=== PATIENT | male | born 1950 | race Caucasian/White ===

== ENCOUNTER 2018-11-06 12:54 | Emergency (ER) | payer MEDICARE, BC ==
[~2018-11-06] VITALS: Ht 193 cm; Wt 115.9 kg
[2018-11-06 13:31] LABS: BASOPHILS % (AUTO) 0.3 % (0-1); EOSINOPHILS % (AUTO) 0.4 % (0-6); HEMATOCRIT 41.8 % (42.0-52.0); HEMOGLOBIN 14.6 g/dl (14.0-17.9); LYMPHOCYTES # (AUTO) 0.5 X10'3 (1.1-4.8); LYMPHOCYTES % (AUTO) 5.2 % (21-51); MEAN CORPUSCULAR HEMOGLOBIN 31.9 PG (27.0-31.0); MEAN CORPUSCULAR HGB CONC 34.8 g/dL (33.0-36.5); MEAN CORPUSCULAR VOLUME 91.6 FL (78-98); MEAN PLATELET VOLUME 7.9 FL (7.4-10.4); MONOCYTES # (AUTO) 0.6 X10'3 (0-0.9); MONOCYTES % (AUTO) 6.9 % (2-12); NEUTROPHILS # (AUTO) 7.8 X10'3 (1.8-7.7); NEUTROPHILS % (AUTO) 87.2 % (42-75); PLATELET COUNT 145 X10'3 (140-440); RED BLOOD COUNT 4.56 X10'6 (4.70-6.10); RED CELL DISTRIBUTION WIDTH 14.4 % (11.5-14.5)
[2018-11-06 13:45] LABS: ALANINE AMINOTRANSFERASE 33 U/L (12-78); ALBUMIN 3.3 G/DL (3.4-5.0); ALBUMIN/GLOBULIN RATIO 0.8 (1.1-1.5); ALKALINE PHOSPHATASE 96 IU/L (46-116); ANION GAP 10 (8-16); ASPARTATE AMINO TRANSFERASE 20 U/L (10-37); BILIRUBIN,TOTAL 0.8 MG/DL (0.1-1.0); BLOOD UREA NITROGEN 27 MG/DL (7-18); BUN/CREATININE RATIO 17.6 (5.4-32.0); CALCIUM 8.6 MG/DL (8.5-10.1); CHLORIDE 103 MMOL/L (99-107); CREATININE 1.53 MG/DL (0.60-1.10); GLUCOSE 379 MG/DL (70-104); POTASSIUM 4.6 MMOL/L (3.5-5.1); SODIUM 136 MMOL/L (135-145); TOTAL PROTEIN 7.6 G/DL (6.4-8.2); eGFR 46 ML/MIN
[2018-11-06 13:50] LABS: INR 1.1 INR; PARTIAL THROMBOPLASTIN TIME 27 SECONDS (22-32); PROTHROMBIN TIME 10.9 SECONDS (9.0-12.0)
[2018-11-06] MEDS ORDERED: ipratropium/albuterol 3ml nebule NEB PRN ×2 (16:40)
[2018-11-06 17:14] VITALS: BP 169/94
[2018-11-06] MEDS ORDERED: LEVO500T2 PO (17:54)
[2018-11-06] MEDS ORDERED: PRED20TA PO (17:54)
[2018-11-06] MEDS ORDERED: ALBU18HF2 INH (17:55)
== END 2018-11-06 18:19 | disposition home or self-care (01) ==
LOC: ER 12:55
DX: J18.9 Pneumonia, unspecified organism (principal); I10 Essential (primary) hypertension; J44.9 Chronic obstructive pulmonary disease, unspecified; E11.9 Type 2 diabetes mellitus without complications; Z95.0 Presence of cardiac pacemaker; Z88.6 Allergy status to analgesic agent; Z88.1 Allergy status to other antibiotic agents; Z88.5 Allergy status to narcotic agent; Z88.8 Allergy status to other drugs, medicaments and biological substances; Z79.899 Other long term (current) drug therapy
CPT/HCPCS: 36415; 71045; 80053; 84484; 85025; 85610; 85730; 93005; 94640; 94760; 99284

== ENCOUNTER 2021-01-20 10:52 | Day surgery (SDC) | payer MEDICARE, BC ==
[2021-01-20] VITALS (9 sets, daily range): BP systolic 117–148; BP diastolic 62–75
[~2021-01-20] VITALS: Ht 193 cm; Wt 110.8 kg
[~2021-01-20 10:52] MED LIST: ALBU18HF2 INH
[2021-01-20] MEDS ORDERED: cefazolin/dext.iso 2gm/100ml 100 ML IV ONE (11:20)
[2021-01-20] MEDS ORDERED: VANCOMYCIN 1,500MG inj. 1,500 MG in normal saline 500ml IV soln 300 ML IV ONE (11:20)
[2021-01-20] MEDS ORDERED: normal saline 1,000 ML IV SCH ×2 (11:20→14:50)
[2021-01-20 12:03] LABS: BASOPHILS % (AUTO) 0.5 % (0-1); EOSINOPHILS # (AUTO) 0.2 X10'3 (0-0.9); EOSINOPHILS % (AUTO) 2.2 % (0-6); HEMATOCRIT 43.1 % (42.0-52.0); HEMOGLOBIN 14.8 g/dl (14.0-17.9); LYMPHOCYTES # (AUTO) 0.8 X10'3 (1.1-4.8); MEAN CORPUSCULAR HEMOGLOBIN 30.1 PG (27.0-31.0); MEAN CORPUSCULAR HGB CONC 34.3 g/dL (33.0-36.5); MEAN CORPUSCULAR VOLUME 87.7 FL (78-98); MEAN PLATELET VOLUME 8.1 FL (7.4-10.4); MONOCYTES # (AUTO) 0.6 X10'3 (0-0.9); MONOCYTES % (AUTO) 7.7 % (2-12); NEUTROPHILS # (AUTO) 6.6 X10'3 (1.8-7.7); NEUTROPHILS % (AUTO) 79.6 % (42-75); PLATELET COUNT 155 X10'3 (140-440); RED BLOOD COUNT 4.92 X10'6 (4.70-6.10); RED CELL DISTRIBUTION WIDTH 14.8 % (11.5-14.5); WHITE BLOOD COUNT 8.3 X10'3 (4.5-11.0)
[2021-01-20] MEDS ORDERED: MYCO250C46 PO (12:08)
[2021-01-20] MEDS ORDERED: ALBU2.5V11 INH (12:08)
[2021-01-20] MEDS ORDERED: ASPI-1265 PO (12:08)
[2021-01-20 12:10] LABS: ALBUMIN 3.6 G/DL (3.4-5.0); ANION GAP 10 (8-16); BLOOD UREA NITROGEN 30 MG/DL (7-18); BUN/CREATININE RATIO 22.1 (5.4-32.0); CHLORIDE 104 MMOL/L (99-107); CREATININE 1.36 MG/DL (0.60-1.10); GLUCOSE 114 MG/DL (70-104); MAGNESIUM 1.6 MG/DL (1.5-2.4); POTASSIUM 4.3 MMOL/L (3.5-5.1); SODIUM 140 MMOL/L (135-145); TOTAL CARBON DIOXIDE 25.6 MMOL/L (24-32); eGFR 52 ML/MIN
[2021-01-20] MEDS ORDERED: TACR1CAP24 PO (12:10)
[2021-01-20] MEDS ORDERED: ESCI-8 PO (12:21)
[2021-01-20] MEDS ORDERED: RAMI10CA69 PO (12:24)
[2021-01-20] MEDS ORDERED: CALC-159 (12:26)
[2021-01-20] MEDS ORDERED: MULT-1085 PO (12:27)
[2021-01-20] MEDS ORDERED: HUM7525 SQ (12:29)
[2021-01-20] MEDS ORDERED: ALBU8.5H8 INH (12:30)
[2021-01-20] MEDS ORDERED: LIRA0.6P2 SUBCUT (12:31)
[2021-01-20] MEDS ORDERED: [UNRECOGNIZED DRUG - OTHER] SQ (12:34)
[2021-01-20] MEDS ORDERED: AMLO-93 PO (12:35)
[2021-01-20] MEDS ORDERED: GABA300C PO (12:37)
[2021-01-20] MEDS ORDERED: ROSU5TAB PO (12:38)
[2021-01-20] MEDS ORDERED: UBID30CA11 PO (12:39)
[2021-01-20] MEDS ORDERED: Prednisone PO (12:42)
[2021-01-20] MEDS ORDERED: HYDR25TA4 PO (12:43)
[2021-01-20] MEDS ORDERED: IPRA3AMP31 IH (12:46)
[2021-01-20] MEDS ORDERED: TRILOGY INH (12:46)
[2021-01-20] MEDS ORDERED: LIDOCAINE 2% w/EPI 1:100:000 30mL injection MDV**cath lab 1 only ONE (13:17)
[2021-01-20] MEDS ORDERED: midazolam 1 mg/ML 2ml injection ONE ×2 (13:18→13:57)
[2021-01-20] MEDS ORDERED: proCHLORperazine 10 MG/2 ml inj ONE (13:18)
[2021-01-20] MEDS ORDERED: fentaNYL/PF 50MCG/1 ML 2ML syringe ONE ×2 (13:19→13:57)
[2021-01-20] MEDS ORDERED: vancomycin 1,000mg inj ONE (13:19)
[2021-01-20] MEDS ORDERED: HYDROcodone/acetaminophen 5mg/325mg tablet PO PRN (14:50)
[2021-01-20] MEDS ORDERED: HYDROcodone/acetaminophen 10/325mg tab PO PRN (14:50)
== END 2021-01-20 17:30 | disposition home or self-care (01) ==
LOC: SSTAY O 10:52
PROVIDERS: ATTEND Internal Medicine Cardiovascular Disease
DX: Z45.010 Encounter for checking and testing of cardiac pacemaker pulse generator [battery] (principal); I42.0 Dilated cardiomyopathy; I48.0 Paroxysmal atrial fibrillation; I50.9 Heart failure, unspecified; I48.92 Unspecified atrial flutter; J45.909 Unspecified asthma, uncomplicated; Z79.899 Other long term (current) drug therapy; Z79.01 Long term (current) use of anticoagulants; Z88.8 Allergy status to other drugs, medicaments and biological substances; Z87.891 Personal history of nicotine dependence
CPT/HCPCS: 33228; 36415; 80048; 82948; 83735; 85025; 85610; 93005; 99152; C1785; J0780; J2250; J3010; J3370; 99153; A4620